=== PATIENT | male | born 1995 | race Caucasian/White ===

== ENCOUNTER 2017-04-12 13:04 | Emergency (ER) | payer MEDICAID ==
[~2017-04-12] VITALS: Ht 175.3 cm; Wt 90.7 kg
[2017-04-12 13:18] VITALS: BP 118/66; PULSE 89; RESP 18; TEMP 98.1; O2SAT 97
--- NOTE | 2017-04-12 13:23 | NUR ---
Anabel steel in ED - 04/12/17 at 1335 by ROSANNE Pt placed to ER bed 3, report given to JORDYN Belle.
--- NOTE | 2017-04-12 13:23 | NUR ---
Pt placed to ER bed 3, report given to JORDYN Hilario.
--- NOTE | 2017-04-12 13:28 | NUR ---
Patient ambulated to bedside accompanied by father. Patient reports that he was recently treated for sore throat and right ear infection was given Promethazine and Zithromax. Patient reports today he woke up with cold sweats and generalized weakness. Complaining of itchy throat and a cough. Denies any Nausea, Vomiting and Diarrhea. Pain of 4/10. No other complaints/injuries per patient or as noted. Will continue to monitor.
--- NOTE | 2017-04-12 13:34 | NUR ---
BETSY Diaz at bedside examining patient.
--- NOTE | 2017-04-12 13:36 | NUR ---
Rapid Strep obtained and sent to lab for resulting. Patient tolerated well.
[2017-04-12] MEDS ORDERED: IBUPROFEN 800 MG TABLET PO ONE (13:45)
[2017-04-12 14:07] VITALS: BP 118/66; PULSE 89; RESP 18; TEMP 98.1; O2SAT 97
--- NOTE | 2017-04-12 14:07 | NUR ---
Patient given written and verbal discharge instructions and verbalizes understanding. ER MD discussed with patient the results and treatment provided. Patient in stable condition. ID arm band removed. Rx of Motrin, Clindamycin, ciprodex, chlorhexidine gluconate rinse, and debrox given. Patient educated on pain management and to follow up with PMD in 2-3 days. Pain Scale 0/10 Opportunity for questions provided and answered.
== END 2017-04-12 14:07 | disposition home or self-care (01) ==
LOC: SED 13:04
DX: H66.91 Otitis media, unspecified, right ear (principal); H60.91 Unspecified otitis externa, right ear; H61.22 Impacted cerumen, left ear; J02.8 Acute pharyngitis due to other specified organisms
CPT/HCPCS: 36415; 86403; 87081; 99284

== ENCOUNTER 2017-05-30 20:19 | Emergency (ER) | payer MEDICAID ==
[~2017-05-30] VITALS: Ht 175.3 cm; Wt 90.7 kg
[2017-05-30 20:30] VITALS: BP_SYST 139
[2017-05-30] MEDS ORDERED: NACL 0.9% 1,000 ML IV ONE (21:00)
[2017-05-30 21:26] LABS: CANNABINOID, URINE POSITIVE (NEG <=50)
[2017-05-30 21:27] LABS: BARBITURATE, URINE NEGATIVE (NEG <=200); BENZODIAZEPINE, URINE NEGATIVE (NEG <=150); COCAINE, URINE NEGATIVE (NEG <=150); METHAMPHETAMINES SCREEN,URINE NEGATIVE (NEG <=500); OPIATE, URINE NEGATIVE (NEG <=100); PHENCYCLIDINE SCREEN,URINE NEGATIVE (NEG <=25); UR TRICYCLIC ANTIDEPRESSANTS NEGATIVE (NEG <=300); URINE AMPHETAMINE NEGATIVE (NEG <=500); URINE METHADONE NEGATIVE (NEG <=200); URINE OXYCODONE SCREEN NEGATIVE (NEG <=100); URINE PROPOXYPHENE SCREEN NEGATIVE (NEG <=300)
[2017-05-30 21:39] LABS: BASOPHILS % (AUTO) 0.4 % (0.0-2.0); EOSINOPHILS % (AUTO) 0.4 % (0.0-4.0); HEMATOCRIT 45.9 % (36-54); HEMOGLOBIN 15.1 g/dL (14.0-18.0); LYMPHOCYTES # (AUTO) 2.1 K/uL (1.0-5.5); LYMPHOCYTES % (AUTO) 23.6 % (20.5-51.5); MEAN CORPUSCULAR HEMOGLOBIN 29 pg (27-31); MEAN CORPUSCULAR HGB CONC 33 % (32-36); MEAN CORPUSCULAR VOLUME 88 fL (79.0-98.0); MONOCYTES # (AUTO) 0.6 K/uL (0.0-1.0); NEUTROPHILS # (AUTO) 6.2 K/uL (1.8-7.7); NEUTROPHILS % (AUTO) 68.6 % (40.0-70.0); PLATELET COUNT (AUTO) 289 K/uL (130-430); RED BLOOD CELL COUNT(AUTO) 5.24 MIL/uL (4.2-6.2); WHITE BLOOD COUNT (AUTO) 8.9 K/uL (4.8-10.8)
[2017-05-30 22:08] LABS: ANION GAP 8 (5-15); CALCIUM 9.3 mg/dL (8.4-11.0); CHLORIDE 102 mmol/L (98-107); CREATININE 0.92 mg/dL (0.55-1.30); GLUCOSE 107 mg/dL (70-99); POTASSIUM 3.5 mmol/L (3.5-5.1); SODIUM SERUM 137 mmol/L (136-145); UREA NITROGEN, BLOOD 11 mg/dL (8-21)
[2017-05-30 22:13] LABS: ALANINE AMINOTRANSFERASE 26 U/L (12-78); ALBUMIN 4.6 g/dL (3.4-4.8); ASPARTATE AMINOTRANSFERASE 14 U/L (10-37); TOTAL BILIRUBIN 0.4 mg/dL (0.0-1.0)
[2017-05-30] MEDS ORDERED: LORazepam 2 MG/ML VIAL (FOR ER USE) IVP ONE (22:15)
[2017-05-30 22:21] LABS: ALCOHOL, BLOOD < 3 mg/dL (<10); GFR AFRICAN AMERICAN 134 mL/min (>90)
[2017-05-30 22:30] LABS: ACETAMINOPHEN < 1 ug/mL (1-30)
[2017-05-30 23:00] VITALS: BP_SYST 148
== END 2017-05-30 23:00 | disposition home or self-care (01) ==
LOC: SED 20:19
DX: F12.10 Cannabis abuse, uncomplicated (principal)
CPT/HCPCS: 36415; 80053; 80307; 85025; 93005; 96361; 96374; 99285; G0480; G0481; G0482; J2060; J7030